=== PATIENT | female | born 1965 | race Caucasian/White ===

== ENCOUNTER 2020-11-02 00:33 | Emergency (ER) | payer MEDICAID, SELFPAY ==
[2020-11-02 00:31] VITALS: BP 190/86; PULSE 74; RESP 16; TEMP 36.6; O2SAT 98; BMI 30.9
[2020-11-02 01:00] VITALS: BP 191/78; PULSE 79; O2SAT 97
--- NOTE | 2020-11-02 01:46 | PC.NURSE ---
Dr Peterson at bedside suturing pt
--- NOTE | 2020-11-02 02:13 | [facility].EDWNDL ---
ED Disposition Clinical Impression: Laceration of lower leg Qualifiers: Encounter type: initial encounter Laterality: left Qualified Code(s): S81.812A - Laceration without foreign body, left lower leg, initial encounter Disposition: Home, Self-Care Condition on Discharge: Good Instructions: DI for Laceration Repair Additional Instructions: sutures out 12 days and recheck with pcp 2 days Referrals: Alexey Burch MD [Primary Care Provider] - - Critical Care Critical Care Time: No Attestation: On 11/02/20, the high probability of a clinically significant, sudden or life threatening deterioration of the following system(s) required my full and direct attention, intervention and personal management. The time I documented below is in addition to time spent performing reported procedures but includes the following listed in this critical care notation. Medical Decision Making - Medical Records Medical records reviewed: Yes: I reviewed the patient's medical records. - Jarrod Inquiry Pt receiving controlled substance: No Vital Signs: 11/02/20 00:31 11/02/20 01:00 Temperature 97.9 F Temperature Source Oral Pulse Rate 79 Pulse Rate [Right] 74 Respiratory Rate 16 Blood Pressure 191/78 H Blood Pressure [Right Arm] 190/86 H Blood Pressure Mean [Right Arm] 120 02 Sat by Pulse Oximetry 98 97 Oxygen Delivery Method Room Air Room Air - Lab Data Lab results reviewed: Yes: I reviewed the patient's lab results. Orders (Tests/Meds): ED MEDICATIONS Discontinued Medications Generic Name Dose Route Start Last Admin Trade Name Freq PRN Reason Stop Dose Admin Tetanus/Diphtheria Toxoids 0.5 ml 11/02/20 00:37 11/02/20 00:42 Tetanus-Diphth Toxoid, Adult 0.5ml Syr IM 11/02/20 00:38 0.5 ml .ONCE ONE Administration Wound/Laceration HPI - General Chief Complaint: Wound/Laceration Stated Complaint: laceration Time Seen by Provider: 11/02/20 00:45 Mode of Arrival: EMS Source of Information: Patient, Significant Other, EMS, Medical Record Limitations: No Limitations Description of Symptoms (Recalled from ER Triage Doc. by RN): pt states was walking in front door of house and fell. pt has a laceration to rt and lt lower leg - History of Present Illness HPI narrative: trip injury with lac to lower leg bilat -no other c/o Onset (ago): hour(s) Extremity Location: Bilateral: lower leg Place: home Patient tetanus UTD: No Context: fall Associated symptoms: none - Related Data Home Medications Medication Instructions Recorded Confirmed aspirin 81 mg tablet,delayed 81 mg PO DAILY 05/24/18 05/24/18 release metoprolol tartrate 25 mg tablet 25 mg PO BID 05/24/18 05/24/18 Allergies Allergy/AdvReac Type Severity Reaction Status Date / Time hydrocodone Allergy Verified 11/02/20 00:38 [facility] History - Hepatitis A Screen Drug use history?: No High risk sexual behaviors?: No History of sexually transmitted infection?: No Currently employed?: No Childcare worker?: No Do you have indoor plumbing?: Yes Do you have electricity?: Yes Attestation statement:: This patient has been screened for Hepatitis A risk factors. I have reviewed the patient's past medical history: Yes Medical History: Reports:: Anxiety (chooses not to take prescribed meds because I don't like how i feel ), Coronary Artery Disease, Gastroesophageal Reflux Disease(GERD), Hyperlipidemia, Hypertension, Myocardial Infarction Other Medical History: Reports: Sinus Problems, Other Other Surgeries: Yes: CABG, Cholecystectomy, Comment: quad bypass surgery - September 2017 - Social History Smoking Status: Current every day smoker Tobacco Type: cigarettes # Packs/Day (cigarettes): 1 Alcohol Intake: never Substance Use Type: denies use Occupational Status: disabled - Psychiatric History Pschychiatric History:: Reports:: Anxiety (chooses not to take prescribed meds because I don't like how i feel ) Family
[2020-11-02 02:35] VITALS: BP 167/72; PULSE 72; RESP 16; TEMP 36.6; O2SAT 97
== END 2020-11-02 02:37 | disposition home or self-care (01) ==
PROVIDERS: Emergency Provider Emergency Medicine; PCP Family Medicine
DX: S81.812A Laceration without foreign body, left lower leg, initial encounter (principal); W01.198A Fall on same level from slipping, tripping and stumbling with subsequent striking against other object, initial encounter; Y92.019 Unspecified place in single-family (private) house as the place of occurrence of the external cause; I25.10 Atherosclerotic heart disease of native coronary artery without angina pectoris; F41.9 Anxiety disorder, unspecified; K21.9 Gastro-esophageal reflux disease without esophagitis; I25.2 Old myocardial infarction; Z23 Encounter for immunization; I10 Essential (primary) hypertension; E78.5 Hyperlipidemia, unspecified
CPT/HCPCS: 12002; 90714; 99282